=== PATIENT | male | born 2000 | race Native Hawaiian/Other Pacific Islander ===

== ENCOUNTER 2018-08-20 14:20 | Inpatient (IN) | payer SELFPAY ==
[2018-08-20] MEDS ORDERED: Sodium Chloride 0.9% 1,000 ML IV ONE (15:12)
[2018-08-20] MEDS ORDERED: Sodium Chloride 0.9% 1,000 ML ONE (15:38)
[2018-08-20 15:39] LABS: BASO # 0.1 K/uL (0.0-0.2); BASO % 0.5 % (0.0-2.0); EOS # 0.3 K/uL (0.0-0.7); HEMOGLOBIN 17.4 g/dL (12.0-18.0); LYMPH # 2.2 K/uL (1.0-4.3); LYMPH % 23.3 % (20.0-40.0); MEAN CELL VOLUME 88.6 fL (80.0-94.0); MEAN CORPUSCULAR HGB CONC 33.9 g/dL (33.0-37.0); MEAN PLATELET VOLUME 7.8 fL (7.2-11.7); MONO % 10.3 % (0.0-10.0); NEUT # 6.1 K/uL (1.8-7.0); NEUT % 62.9 % (50.0-75.0); RBC 5.78 Mil/uL (4.40-5.90); RED CELL DISTRIBUTION WIDTH 13.3 % (11.5-14.5); WHITE BLOOD COUNT 9.7 K/uL (4.8-10.8)
[2018-08-20 16:00] LABS: BLOOD UREA NITROGEN 12 mg/dL (9-20); CALCIUM 9.3 mg/dl (8.6-10.4); GFR NON-AFRICAN AMERICAN > 60
--- NOTE | 2018-08-20 16:00 | C.PDOC ---
History Of Present Illness Patient reports one day history of palpitations, states "it feels like my heart is pounding out of my chest". Reports some dyspnea as well. Denies chest pain. States that he has a history of SVT, was previously on digoxin, but was taken off of it five years ago. Has never had an ablation or required cardioversion. Patient is visiting from the [facility], arrived 08/05. No leg swelling or pain. Time Seen by Provider: 08/20/18 14:48 Chief Complaint (Nursing): Palpitations PMH Reviewed: Historical Data, Nursing Documentation, Vital Signs - Medical History Other PMH: SVT - Surgical History Surgical History: No Surg Hx - Family History Family History: States: Unknown Family Hx - Social History Lives With A Smoker: No - Immunization History Hx Tetanus Toxoid Vaccination: No Hx Influenza Vaccination: No Hx Pneumococcal Vaccination: No Review Of Systems Except As Marked, All Systems Reviewed And Found Negative. Constitutional: Negative for: Fever, Chills Cardiovascular: Positive for: Palpitations. Negative for: Chest Pain, Light Headedness Respiratory: Positive for: Shortness of Breath. Negative for: Cough, Hemoptysis, SOB with Excertion, Pleuritic Pain Gastrointestinal: Negative for: Nausea, Vomiting, Abdominal Pain, Diarrhea Neurological: Negative for: Altered Mental Status Pedatric Physical Exam - Physical Exam Appears: Well Appearing, Non-toxic, No Acute Distress Skin: Normal Color, Warm, Dry Head: Atraumatic, Normacephalic Eye(s): bilateral: Normal Inspection Oral Mucosa: Moist Cardiovascular: Rhythm Irregular Respiratory: Normal Breath Sounds, No Accessory Muscle Use, No Rales, No Rhonchi, No Wheezing Gastrointestinal/Abdominal: Normal Exam Extremity: No Calf Tenderness, No Deformity, No Swelling Neurological/Psych: Oriented x3, Normal Speech Gait: Steady ED Course And Treatment - Laboratory Results Result Diagrams: 08/21/18 06:06 08/21/18 06:06 ECG: Interpreted By Me ECG Rhythm: Atrial Fibrillation (with RVR) Interpretation Of ECG: normal axis, normal QTc, no ST elevation Rate From EC O2 Sat by Pulse Oximetry: 99 - Other Rad CXR X-Ray: Viewed By Me, Read By Radiologist Interpretation: Date of service: 08/20/2018. HISTORY: palpitations. COMPARISON: No prior. FINDINGS: LUNGS: No active pulmonary disease. PLEURA: No significant pleural effusion identified, no pneumothorax apparent. CARDIOVASCULAR: No aortic atherosclerotic calcification present. Normal cardiac size. No pulmonary vascular congestion. OSSEOUS STRUCTURES: No significant abnormalities. VISUALIZED UPPER ABDOMEN: Normal. OTHER FINDINGS: None. IMPRESSION: No active disease. Medical Decision Making Medical Decision Making: Patient placed on continuous cardiac monitoring. Rapid afib noted, HR 130's. EKG done, afib with RVR noted. BP 110's systolic. Cardizem 10mg ivp given. HR decreased to 90's but went back up to 110's. Cardizem 15mg ivp given. HR decreased to 80's and remained. Still in afib. BP in the 100's-110's systolic throughout. Patient AAOx3 with no dizziness or syncope. Labwork done and results discussed with patient and family. Decision made to admit for further evaluation and management of new onset afib. Case discussed with Dr. Sheikh, hospitalist manager economic, who accepts patient for admission. Patient admitted to tele bed. Disposition - Disposition Disposition Time: 15:00 Condition: GOOD - Clinical Impression Clinical Impression: Atrial fibrillation with RVR
--- NOTE | 2018-08-20 16:14 | RAD ---
Date of service: 08/20/2018 HISTORY: palpitations COMPARISON: No prior. FINDINGS: LUNGS: No active pulmonary disease. PLEURA: No significant pleural effusion identified, no pneumothorax apparent. CARDIOVASCULAR: No aortic atherosclerotic calcification present. Normal cardiac size. No pulmonary vascular congestion. OSSEOUS STRUCTURES: No significant abnormalities. VISUALIZED UPPER ABDOMEN: Normal. OTHER FINDINGS: None. IMPRESSION: No active disease.
[2018-08-20 18:54] LABS: T4 6.4 ug/dL (5.5-11.0)
--- NOTE | 2018-08-20 18:55 | CP.PCM.HP ---
<Mervat CalvoGarrison - Last Filed: 08/20/18 19:27> History of Present Illness - History of Present Illness History of Present Illness: Patient is a 17 year old male with a past medical history of SVT, who presents to the ED with complaints of palpitations and a "pounding chest". He states the palpitations started before lunchtime while he was laying on the couch. He tried to cough to reduce the palpitations, which did not work, and then tried to "sleep it off". Patient states the palpitations and pounding sensation persisted, which is when he came to the hospital. He was previously diagnosed with SVT 7 years ago, took Lanoxin for approximately 1-2 years, and has not taken any medications since (for about 5 years), as his fisher oyster said he did not need to anymore. He has had one episode over the last 5 years approximately 2 years ago. The episode lasted about 5 minutes. He did not follow up with his fisher oyster or PMD in the [facility] over the last 3 years. The patient states he had an echocardiogram when he was diagnosed 7 years ago, but has not had one since. The patient currently complains of palpitations, stating that "they were better earlier (after receiving medication), but they are starting again". He denies chest pain, dyspnea, cough, nausea, vomiting, dizziness, headaches, abdominal pain, diarrhea, constipation, dysuria. PMHx: SVT SurgHx: none FamHx: Mother- DM, Father- HTN; paternal grandfather- colon cancer SocHx: denies tobacco, alcohol, and drug use. Patient is on vacation from the [facility] with his parents, Masood and Hersenia. He admits to drinking soda (possibly with caffeine) and a poor diet while on vacation. Allergies: NKDA Medications: none Present on Admission - Present on Admission Any Indicators Present on Admission: No Review of Systems - Constitutional Constitutional: absent: Chills, Fever, Headache - EENT Ears: absent: Dizziness - Cardiovascular Cardiovascular: Dyspnea on Exertion, Irregular Heart Rhythm, Palpitations, Rapid Heart Rate. absent: Chest Pain, Edema, Leg Edema - Respiratory Respiratory: absent: Cough, Dyspnea - Gastrointestinal Gastrointestinal: absent: Abdominal Pain, Constipation, Diarrhea, Nausea, Vomiting - Genitourinary Genitourinary: absent: Change in Urinary Stream, Dysuria - Neurological Neurological: absent: Dizziness, Headaches - Endocrine Endocrine: Palpitations Past Patient History - Past Social History Smoking Status: Never Smoked - CARDIAC Hx Atrial Fibrillation: Yes - PSYCHIATRIC Hx Substance Use: No Meds Allergies/Adverse Reactions: Allergies Allergy/AdvReac Type Severity Reaction Status Date / Time No Known Allergies Allergy Verified 08/20/18 14:56 Physical Exam - Constitutional Appears: No Acute Distress - Head Exam Head Exam: ATRAUMATIC, NORMAL INSPECTION - Eye Exam Eye Exam: EOMI, Normal appearance - ENT Exam ENT Exam: Mucous Membranes Moist - Neck Exam Neck exam: Negative for: Tenderness, Thyromegaly (possible nodule palpated in the right lobe) - Respiratory Exam Respiratory Exam: Clear to Auscultation Bilateral, NORMAL BREATHING PATTERN. absent: Rales, Rhonchi, Wheezes, Respiratory Distress - Cardiovascular Exam Cardiovascular Exam: Tachycardia, Irregular Rhythm, +S1, +S2 - GI/Abdominal Exam GI & Abdominal Exam: Normal Bowel Sounds, Soft. absent: Distended, Firm, Guarding, Tenderness - Extremities Exam Extremities exam: Positive for: full ROM, normal inspection, pedal pulses present. Negative for: calf tenderness, pedal edema, tenderness - Neurological Exam Neurological exam: Alert, Oriented x3 - Psychiatric Exam Psychiatric exam: Normal Affect, Normal Mood - Skin Skin Exam: Intact, Normal Color, Warm Results - Vital Signs Recent Vital Signs: Last Vital Signs Temp 98 F 08/20/18 16:45 Pulse 93 H 08/20/18 18:22 Resp 22 08/20/18 18:22 BP 112/80 08/20/18 18:22 Pulse Ox 98 08/20/18 18:22 - Labs Result Diagrams: 08/20/18 15:34 08/20/18 15:34 Labs: Laboratory Results - last 24 hr 08/20/18 08/20/18 08/20/18 15:34 15:34 17:28 WBC 9.7 RBC 5.78 Hgb 17.4 Hct 51.2 H MCV 88.6 MCH 30.0 MCHC 33.9 RDW 13.3 Plt Count 314 MPV 7.8 Neut % (Auto) 62.9 Lymph % (Auto) 23.3 [place] % (Auto) 10.3 H Eos % (Auto) 3.0 Baso % (Auto) 0.5 Neut # (Auto) 6.1 Lymph # (Auto) 2.2 [place] # (Auto) 1.0 H Eos # (Auto) 0.3 Baso # (Auto) 0.1 D-Dimer, Quantitative < 200 Sodium 138 Potassium 4.3 Chloride 102 Carbon Dioxide 25 Anion Gap 15 BUN 12 Creatinine 0.6 L Est GFR ( Amer) > 60 Est GFR (Non-Af Amer) > 60 Random Glucose 102 Calcium 9.3 Phosphorus 3.4 Magnesium 2.0 Troponin I < 0.0120 Assessment & Plan - Assessment and Plan (Free Text) Plan: Atrial Fibrillation w/ RVR - EKG (at admission): Afib w/RVR @104bpm - In the ED, was given total 25mg IV cardizem - Pie Chef consulted, help appreciated: Dr. Ng (covering for Dr. Blood) - Per fisher oyster, will start the following: * Amiodarone 150mg IV once * Amiodarone 24-hour drip (1mg/min x6hrs, followed by 0.5mg/min x18hrs) to attempt pharmacologic cardioverision * Lopressor 25mg PO BID * Asa 325mg PO daily - Chest CTA ordered to r/o PE due to sudden onset of afib and recent travel - TSH/Free T4 ordered, follow up - Echo ordered, follow up - Chadsvasc score 0, no anticoagulation needed at this time. *Patient will be transferred to ICU for Amiodarone 24-hour drip. Prophylaxis - DVT: Heparin 5000 units SC Q12h - GI: Pepcid 20mg PO daily - Heart healthy diet, decaf Case discussed with Dr. Kori Macias, PGY2 <Quynh Sheikh - Last Filed: 08/21/18 16:20> Results - Vital Signs Recent Vital Signs: Last Vital Signs Temp 97.8 F 08/21/18 08:00 Pulse 80 08/21/18 09:28 Resp 14 08/21/18 09:28 BP 122/72 08/21/18 09:28 Pulse Ox 98 08/21/18 09:28 - Labs Result Diagrams: 08/21/18 06:06 08/21/18 06:06 Labs: Laboratory Results - last 24 hr 08/20/18 08/20/18 08/21/18 17:28 18:28 06:06 WBC 8.7 RBC 5.33 Hgb 16.2 Hct 48.1 MCV 90.2 MCH 30.5 MCHC 33.8 RDW 13.0 Plt Count 283 MPV 8.4 Neut % (Auto) 58.2 Lymph % (Auto) 27.9 [place] % (Auto) 9.9 Eos % (Auto) 3.6 Baso % (Auto) 0.4 Neut # (Auto) 5.1 Lymph # (Auto) 2.4 [place] # (Auto) 0.9 H Eos # (Auto) 0.3 Baso # (Auto) 0.0 D-Dimer, Quantitative < 200 Sodium Potassium Chloride Carbon Dioxide Anion Gap BUN Creatinine Est GFR ( Amer) Est GFR (Non-Af Amer) Random Glucose Calcium Total Bilirubin AST ALT Alkaline Phosphatase Total Protein Albumin Globulin Albumin/Globulin Ratio Triglycerides Cholesterol LDL Cholesterol Direct HDL Cholesterol Thyroxine (T4) 6.40 TSH 3rd Generation 0.86 08/21/18 06:06 WBC RBC Hgb Hct MCV MCH MCHC RDW Plt Count MPV Neut % (Auto) Lymph % (Auto) [place] % (Auto) Eos % (Auto) Baso % (Auto) Neut # (Auto) Lymph # (Auto) [place] # (Auto) Eos # (Auto) Baso # (Auto) D-Dimer, Quantitative Sodium 136 Potassium 3.8 Chloride 100 Carbon Dioxide 28 Anion Gap 12 BUN 13 Creatinine 0.7 L Est GFR ( Amer) > 60 Est GFR (Non-Af Amer) > 60 Random Glucose 100 Calcium 9.2 Total Bilirubin 0.7 AST 50 ALT 108 H Alkaline Phosphatase 76 Total Protein 7.3 Albumin 4.4 Globulin 3.0 Albumin/Globulin Ratio 1.5 Triglycerides 82 Cholesterol 198 LDL Cholesterol Direct 133 H HDL Cholesterol 51 Thyroxine (T4) TSH 3rd Generation Attending/Attestation - Attestation I have personally seen and examined this patient.: Yes I have fully participated in the care of the patient.: Yes I have reviewed all pertinent clinical information: Yes Notes (Text): seen and examined with the resident This is 17years old boy with history of SVT in the past came with afib with RVR. His HR came down after cardizem at ER. Discussed with the fisher oyster Dr Woods. He recommended to give amiodarone 150mg bolus followed by drip Patient will have CTA to r/o PE Spoke to Dr Santiago . Patient will be going to ICU to monitor him Amiodarone
[2018-08-20] MEDS ORDERED: Amiodarone 360 mg/D5W 200 ml 360 MG/200 ML BAG IV SCH (19:45)
[2018-08-20] MEDS ORDERED: Iodixanol 320 MG/ML 100 ML BOTTLE IV ONE (19:56)
--- NOTE | 2018-08-20 21:38 | CP.PCM.CON ---
History of Present Illness - History of Present Illness History of Present Illness: 17 year old male ,visiting from the [facility] with a past medical history of SVT, who presents to the ED with complaints of palpitations and a "pounding chest" and dyspnea. Palpitations started before lunchtime while at rest. He trie d to cough to reduce the palpitations, which did not work, and then tried to "sleep it off". Symptoms persisted and resulting in Er visit. History of SVT 7 years ago for which he took Lanoxin for approximately 1-2 years and discontinued by the [employer] about 5 years ago. The patient was given Cardizem in the ER and later started on amiodarone as recommended by Cardiology.Denies palpitations ,chest pain or difficulty breathing at present time. Review of Systems - Constitutional Constitutional: absent: Anorexia, Night Sweats, Weakness - EENT Eyes: absent: Blurred Vision, Diplopia Nose/Mouth/Throat: absent: Nasal Congestion, Sore Throat, Neck Pain - Cardiovascular Cardiovascular: absent: Chest Pain, Claudication, Dyspnea - Respiratory Respiratory: absent: Cough, Hemoptysis - Gastrointestinal Gastrointestinal: absent: Abdominal Pain, Nausea, Vomiting - Genitourinary Genitourinary: absent: Dysuria - Musculoskeletal Musculoskeletal: absent: Back Pain, Joint Swelling - Integumentary Integumentary: absent: Bleeding Lesions, Rash - Neurological Neurological: absent: Confusion, Dizziness, Focal Weakness - Endocrine Endocrine: absent: Fatigue - Hematologic/Lymphatic Hematologic: absent: Easy Bleeding Past Patient History - Past Medical History & Family History Past Medical History?: Yes - Past Social History Smoking Status: Not a smok Alcohol: None Home Situation {Lives}: With Family - CARDIAC Hx Atrial Fibrillation: Yes Hx Cardia Arrhythmia: Yes (SVT) - PULMONARY Hx Respiratory Disorders: No - NEUROLOGICAL Hx Neurological Disorder: No - HEENT Hx HEENT Problems: No - RENAL Hx Chronic Kidney Disease: No - ENDOCRINE/METABOLIC Hx Endocrine Disorders: No - HEMATOLOGICAL/ONCOLOGICAL Hx Blood Disorders: No - INTEGUMENTARY Hx Dermatological Problems: No - MUSCULOSKELETAL/RHEUMATOLOGICAL Hx Musculoskeletal Disorders: No Hx Falls: No - GASTROINTESTINAL Hx Gastrointestinal Disorders: No - GENITOURINARY/GYNECOLOGICAL Hx Genitourinary Disorders: No - PSYCHIATRIC Hx Psychophysiologic Disorder: No Hx Substance Use: No - SURGICAL HISTORY Hx Surgeries: No - ANESTHESIA Hx Anesthesia: No Meds Allergies/Adverse Reactions: Allergies Allergy/AdvReac Type Severity Reaction Status Date / Time No Known Allergies Allergy Verified 08/20/18 14:56 - Medications Medications: Current Medications Aspirin (Aspirin) 325 mg PO DAILY [facility] Last Admin: 08/20/18 19:27 Dose: 325 mg Famotidine (Pepcid) 20 mg PO DAILY [facility] Heparin Sodium (Porcine) (Heparin) 5,000 units SC Q12 [facility] Amiodarone HCl/Dextrose (Nexterone 360 Mg In D5w 200 Ml (Premix)) 360 mg in 200 mls @ 33.333 mls/hr IV .Q6H [facility]; Protocol Stop: 08/21/18 01:12 Last Admin: 08/20/18 20:09 Dose: 33.333 mls/hr Amiodarone HCl 540 mg/ (Dextrose) 300 mls @ 0.5 mls/min IV Q18H [facility] Metoprolol Tartrate (Lopressor) 25 mg PO BID [facility] Physical Exam - Constitutional Appears: Non-toxic, No Acute Distress - Head Exam Head Exam: ATRAUMATIC, NORMAL INSPECTION, NORMOCEPHALIC - Eye Exam Eye Exam: EOMI, PERRL - ENT Exam ENT Exam: Mucous Membranes Moist, Normal Exam - Neck Exam Neck exam: Positive for: Normal Inspection. Negative for: Lymphadenopathy - Respiratory Exam Respiratory Exam: Clear to Auscultation Bilateral, NORMAL BREATHING PATTERN. absent: Chest Wall Tenderness, Rhonchi, Wheezes - Cardiovascular Exam Cardiovascular Exam: Irregular Rhythm. absent: JVD - GI/Abdominal Exam GI & Abdominal Exam: Normal Bowel Sounds, Soft. absent: Tenderness - Extremities Exam Extremities exam: Positive for: pedal pulses present. Negative for: calf tenderness, normal inspection, pedal edema - Neurological Exam Neurological exam: Alert, Normal Gait, Oriented x3 - Psychiatric Exam Psychiatric exam: Normal Affect - Skin Skin Exam: Normal Color, Warm Results - Vital Signs Recent Vital Signs: Last Vital Signs Temp 98.1 F 08/20/18 20:30 Pulse 70 08/20/18 20:50 Resp 18 08/20/18 20:50 BP 126/84 08/20/18 20:27 Pulse Ox 98 08/20/18 20:50 - Labs Result Diagrams: 08/20/18 15:34 08/20/18 15:34 Labs: Laboratory Results - last 24 hr 08/20/18 08/20/18 08/20/18 15:34 15:34 17:28 WBC 9.7 RBC 5.78 Hgb 17.4 Hct 51.2 H MCV 88.6 MCH 30.0 MCHC 33.9 RDW 13.3 Plt Count 314 MPV 7.8 Neut % (Auto) 62.9 Lymph % (Auto) 23.3 [place] % (Auto) 10.3 H Eos % (Auto) 3.0 Baso % (Auto) 0.5 Neut # (Auto) 6.1 Lymph # (Auto) 2.2 [place] # (Auto) 1.0 H Eos # (Auto) 0.3 Baso # (Auto) 0.1 D-Dimer, Quantitative < 200 Sodium 138 Potassium 4.3 Chloride 102 Carbon Dioxide 25 Anion Gap 15 BUN 12 Creatinine 0.6 L Est GFR ( Amer) > 60 Est GFR (Non-Af Amer) > 60 Random Glucose 102 Calcium 9.3 Phosphorus 3.4 Magnesium 2.0 Troponin I < 0.0120 Thyroxine (T4) TSH 3rd Generation 08/20/18 18:28 WBC RBC Hgb Hct MCV MCH MCHC RDW Plt Count MPV Neut % (Auto) Lymph % (Auto) [place] % (Auto) Eos % (Auto) Baso % (Auto) Neut # (Auto) Lymph # (Auto) [place] # (Auto) Eos # (Auto) Baso # (Auto) D-Dimer, Quantitative Sodium Potassium Chloride Carbon Dioxide Anion Gap BUN Creatinine Est GFR ( Amer) Est GFR (Non-Af Amer) Random Glucose Calcium Phosphorus Magnesium Troponin I Thyroxine (T4) 6.40 TSH 3rd Generation 0.86 - EKG Data EKG Interpreted by: Myself - Imaging and Cardiology Chest x-ray Status: Image reviewed by me, Report reviewed by me Assessment & Plan - Assessment and Plan (Free Text) Assessment: 1.Atrial Fibrillation with RVR,rate controlled with meds On Amiodarone,lopressor and aspirin as per Cardiology recommendations ECHO Ct angiogram -Unremarkable Pulmonary embolism protocol
[2018-08-21] MEDS ORDERED: Amiodarone 540 MG in Dextrose 5% In Water 289.2 ML IV SCH ×2 (01:13→03:30)
[2018-08-21 06:16] LABS: BASO % 0.4 % (0.0-2.0); EOS # 0.3 K/uL (0.0-0.7); EOS % 3.6 % (0.0-4.0); HEMOGLOBIN 16.2 g/dL (12.0-18.0); LYMPH # 2.4 K/uL (1.0-4.3); LYMPH % 27.9 % (20.0-40.0); MEAN CELL VOLUME 90.2 fL (80.0-94.0); MEAN CORPUSCULAR HEMOGLOBIN 30.5 pg (27.0-31.0); MEAN CORPUSCULAR HGB CONC 33.8 g/dL (33.0-37.0); MEAN PLATELET VOLUME 8.4 fL (7.2-11.7); MONO # 0.9 K/uL (0.0-0.8); MONO % 9.9 % (0.0-10.0); NEUT # 5.1 K/uL (1.8-7.0); NEUT % 58.2 % (50.0-75.0); NRBC % 0.1 % (0.0-2.0); RBC 5.33 Mil/uL (4.40-5.90); WHITE BLOOD COUNT 8.7 K/uL (4.8-10.8)
[2018-08-21 06:45] LABS: ALB/GLOB RATIO 1.5 (1.0-2.1); ALBUMIN 4.4 g/dL (3.5-5.0); ALT/SGPT 108 U/L (21-72); AST/SGOT 50 U/L (17-59); BLOOD UREA NITROGEN 13 mg/dL (9-20); CALCIUM 9.2 mg/dl (8.6-10.4); GFR NON-AFRICAN AMERICAN > 60; HDL CHOLESTEROL 51 mg/dL (30-70)
[2018-08-21 06:56] LABS: LDL CHOLESTEROL 133 mg/dL (0-129)
--- NOTE | 2018-08-21 08:44 | CP.CCUPN ---
<Juliet Hsieh - Last Filed: 08/21/18 09:53> CCU Subjective - Physician Review Subjective (Free Text): 08/21/18 08:44 ICU Progress Note for Jerson Patient seen and examined at bedside this morning alongside his mother. Patient states he is doing well and feeling like his normal self. He states his palpitations have gone away. Amiodarone drip has been d/segundo. Patient and mother are eager to go home. 12 point ROS negative. 08/21/18 09:41 08/21/18 09:53 08/21/18 09:53 CCU Objective - Vital Signs / Intake & Output Vital Signs (Last 4 hours): Vital Signs Pulse Resp BP Pulse Ox 08/21/18 06:28 56 L 14 107/65 98 08/21/18 05:28 53 L 12 106/68 98 Intake and Output (Last 8hrs): Intake & Output 08/20/18 08/21/18 08/21/18 22:59 06:59 14:59 Intake Total 615.6 183.4 Output Total 500 Balance 115.6 183.4 Weight 232 lb 4.8 oz Intake: Intake, IV Amount 115.6 183.4 Left Forearm 115.6 183.4 Oral 500 Output: Urine 500 Urine, Voided 500 - Physical Exam Head: Positive for: Atraumatic, Normocephalic Extroacular Muscles: Positive for: EOMI Conjunctiva: Positive for: Normal Respiratory/Chest: Positive for: Clear to Auscultation, Good Air Exchange. Negative for: Respiratory Distress, Accessory Muscle Use Cardiovascular: Positive for: Regular Rate and Rhythm. Negative for: Murmurs Upper Extremity: Positive for: Normal Inspection, NORMAL PULSES, Capillary Refill < 2s. Negative for: Cyanosis, Edema Lower Extremity: Positive for: Normal Inspection, NORMAL PULSES. Negative for: Edema Neurological: Positive for: Speech Normal Skin: Positive for: Warm, Dry, Normal Color. Negative for: Rashes Psychiatric: Positive for: Alert, Oriented x 3 - Medications Active Medications: Active Medications Generic Name Dose Route Start Last Admin Trade Name Freq PRN Reason Stop Dose Admin Aspirin 325 mg 08/20/18 19:13 08/20/18 19:27 Aspirin PO 325 mg DAILY DESTINEY Administration Famotidine 20 mg 08/21/18 10:00 Pepcid PO DAILY [facility] Heparin Sodium (Porcine) 5,000 units 08/20/18 22:00 08/20/18 22:00 Heparin SC 5,000 units Q12 DESTINEY Administration Metoprolol Tartrate 25 mg 08/21/18 10:00 Lopressor PO BID DESTINEY - Patient Studies Lab Studies: Lab Studies 08/21/18 08/21/18 08/20/18 Range/Units 06:06 06:06 18:28 WBC 8.7 (4.8-10.8) K/uL RBC 5.33 (4.40-5.90) Mil/uL Hgb 16.2 (12.0-18.0) g/dL Hct 48.1 (35.0-51.0) % MCV 90.2 (80.0-94.0) fL MCH 30.5 (27.0-31.0) pg MCHC 33.8 (33.0-37.0) g/dL RDW 13.0 (11.5-14.5) % Plt Count 283 (130-400) K/uL MPV 8.4 (7.2-11.7) fL Neut % (Auto) 58.2 (50.0-75.0) % Lymph % (Auto) 27.9 (20.0-40.0) % [place] % (Auto) 9.9 (0.0-10.0) % Eos % (Auto) 3.6 (0.0-4.0) % Baso % (Auto) 0.4 (0.0-2.0) % Neut # (Auto) 5.1 (1.8-7.0) K/uL Lymph # (Auto) 2.4 (1.0-4.3) K/uL [place] # (Auto) 0.9 H (0.0-0.8) K/uL Eos # (Auto) 0.3 (0.0-0.7) K/uL Baso # (Auto) 0.0 (0.0-0.2) K/uL D-Dimer, Quantitative (0-243) ng/mlDDU Sodium 136 (132-148) mmol/L Potassium 3.8 (3.6-5.2) mmol/L Chloride 100 (98-107) mmol/L Carbon Dioxide 28 (22-30) mmol/L Anion Gap 12 (10-20) BUN 13 (9-20) mg/dL Creatinine 0.7 L (0.8-1.5) mg/dL Est GFR ( Amer) > 60 Est GFR (Non-Af Amer) > 60 Random Glucose 100 (75-110) mg/dL Calcium 9.2 (8.6-10.4) mg/dl Phosphorus (2.5-4.5) mg/dL Magnesium (1.6-2.3) mg/dL Total Bilirubin 0.7 (0.2-1.3) mg/dL AST 50 (17-59) U/L ALT 108 H (21-72) U/L Alkaline Phosphatase 76 (38-126) U/L Troponin I (0.00-0.120) ng/mL Total Protein 7.3 (6.3-8.3) g/dL Albumin 4.4 (3.5-5.0) g/dL Globulin 3.0 (2.2-3.9) gm/dL Albumin/Globulin Ratio 1.5 (1.0-2.1) Triglycerides 82 (0-149) mg/dL Cholesterol 198 (0-199) mg/dL LDL Cholesterol Direct 133 H (0-129) mg/dL HDL Cholesterol 51 (30-70) mg/dL Thyroxine (T4) 6.40 (5.5-11.0) ug/dL TSH 3rd Generation 0.86 (0.46-4.68) mIU/L 08/20/18 08/20/18 08/20/18 Range/Units 17:28 15:34 15:34 WBC 9.7 (4.8-10.8) K/uL RBC 5.78 (4.40-5.90) Mil/uL Hgb 17.4 (12.0-18.0) g/dL Hct 51.2 H (35.0-51.0) % MCV 88.6 (80.0-94.0) fL MCH 30.0 (27.0-31.0) pg MCHC 33.9 (33.0-37.0) g/dL RDW 13.3 (11.5-14.5) % Plt Count 314 (130-400) K/uL MPV 7.8 (7.2-11.7) fL Neut % (Auto) 62.9 (50.0-75.0) % Lymph % (Auto) 23.3 (20.0-40.0) % [place] % (Auto) 10.3 H (0.0-10.0) % Eos % (Auto) 3.0 (0.0-4.0) % Baso % (Auto) 0.5 (0.0-2.0) % Neut # (Auto) 6.1 (1.8-7.0) K/uL Lymph # (Auto) 2.2 (1.0-4.3) K/uL [place] # (Auto) 1.0 H (0.0-0.8) K/uL Eos # (Auto) 0.3 (0.0-0.7) K/uL Baso # (Auto) 0.1 (0.0-0.2) K/uL D-Dimer, Quantitative < 200 (0-243) ng/mlDDU Sodium 138 (132-148) mmol/L Potassium 4.3 (3.6-5.2) mmol/L Chloride 102 (98-107) mmol/L Carbon Dioxide 25 (22-30) mmol/L Anion Gap 15 (10-20) BUN 12 (9-20) mg/dL Creatinine 0.6 L (0.8-1.5) mg/dL Est GFR ( Amer) > 60 Est GFR (Non-Af Amer) > 60 Random Glucose 102 (75-110) mg/dL Calcium 9.3 (8.6-10.4) mg/dl Phosphorus 3.4 (2.5-4.5) mg/dL Magnesium 2.0 (1.6-2.3) mg/dL Total Bilirubin (0.2-1.3) mg/dL AST (17-59) U/L ALT (21-72) U/L Alkaline Phosphatase (38-126) U/L Troponin I < 0.0120 (0.00-0.120) ng/mL Total Protein (6.3-8.3) g/dL Albumin (3.5-5.0) g/dL Globulin (2.2-3.9) gm/dL Albumin/Globulin Ratio (1.0-2.1) Triglycerides (0-149) mg/dL Cholesterol (0-199) mg/dL LDL Cholesterol Direct (0-129) mg/dL HDL Cholesterol (30-70) mg/dL Thyroxine (T4) (5.5-11.0) ug/dL TSH 3rd Generation (0.46-4.68) mIU/L Laboratory Results - last 24 hr 08/20/18 08/20/18 08/20/18 15:34 15:34 17:28 WBC 9.7 RBC 5.78 Hgb 17.4 Hct 51.2 H MCV 88.6 MCH 30.0 MCHC 33.9 RDW 13.3 Plt Count 314 MPV 7.8 Neut % (Auto) 62.9 Lymph % (Auto) 23.3 [place] % (Auto) 10.3 H Eos % (Auto) 3.0 Baso % (Auto) 0.5 Neut # (Auto) 6.1 Lymph # (Auto) 2.2 [place] # (Auto) 1.0 H Eos # (Auto) 0.3 Baso # (Auto) 0.1 D-Dimer, Quantitative < 200 Sodium 138 Potassium 4.3 Chloride 102 Carbon Dioxide 25 Anion Gap 15 BUN 12 Creatinine 0.6 L Est GFR ( Amer) > 60 Est GFR (Non-Af Amer) > 60 Random Glucose 102 Calcium 9.3 Phosphorus 3.4 Magnesium 2.0 Total Bilirubin AST ALT Alkaline Phosphatase Troponin I < 0.0120 Total Protein Albumin Globulin Albumin/Globulin Ratio Triglycerides Cholesterol LDL Cholesterol Direct HDL Cholesterol Thyroxine (T4) TSH 3rd Generation 08/20/18 08/21/18 08/21/18 18:28 06:06 06:06 WBC 8.7 RBC 5.33 Hgb 16.2 Hct 48.1 MCV 90.2 MCH 30.5 MCHC 33.8 RDW 13.0 Plt Count 283 MPV 8.4 Neut % (Auto) 58.2 Lymph % (Auto) 27.9 [place] % (Auto) 9.9 Eos % (Auto) 3.6 Baso % (Auto) 0.4 Neut # (Auto) 5.1 Lymph # (Auto) 2.4 [place] # (Auto) 0.9 H Eos # (Auto) 0.3 Baso # (Auto) 0.0 D-Dimer, Quantitative Sodium 136 Potassium 3.8 Chloride 100 Carbon Dioxide 28 Anion Gap 12 BUN 13 Creatinine 0.7 L Est GFR ( Amer) > 60 Est GFR (Non-Af Amer) > 60 Random Glucose 100 Calcium 9.2 Phosphorus Magnesium Total Bilirubin 0.7 AST 50 ALT 108 H Alkaline Phosphatase 76 Troponin I Total Protein 7.3 Albumin 4.4 Globulin 3.0 Albumin/Globulin Ratio 1.5 Triglycerides 82 Cholesterol 198 LDL Cholesterol Direct 133 H HDL Cholesterol 51 Thyroxine (T4) 6.40 TSH 3rd Generation 0.86 Radiology Impressions: Radiology Impressions Chest X-Ray 08/20/18 15:14 IMPRESSION: No active disease. EKG/Cardiology Studies: Cardiology / EKG Studies 08/20/18 14:31 EKG [ELECTROCARDIOGRAM] Stat Comment: Mode Of Transportation: BED Reason For Exam: cp 08/21/18 07:04 EKG [ELECTROCARDIOGRAM] Stat Comment: Mode Of Transportation: AMBULATORY Reason For Exam: A-FIB Critical Care Progress Note - Nutrition Nutrition: Nutrition Category Date Time Status Heart Healthy Diet [DIET] Diets 08/20/18 Dinner Active Assessment/Plan - Assessment and Plan (Free Text) Assessment: 17 y/o with PMHx of SVT presented to the ED 08/20 with palpitations. Patient stayed in the ICU and is now s/p amiodarone drip and hemodynamically stable. Neuro -AAOx3 -no acute issues CV -Pt w/ PMHx of SVT 7 years ago, was on lanoxin approx 2 years and was d/segundo. Pt w/ Afib w/ RVR in the ED last night 08/20. -s/p amiodarone drip w/ taper. AM EKG with sinus bradycardia 53 bpm. -patient currently on aspirin 325 mg and metoprolol 25 mg BID as recommended by cardiology. Cardiology following: Dr. Ng, covering for Dr. Blood. -pending chest CTA read -pending ECHO read -pending final cardiology recs. Recs last night in admission H&P for Dr. Sheikh (see note). Pulm -CXR neg -no acute issues Renal -electrolytes wnl -no acute issues GI -HHD, avoid caffeine -no acute issues Endo -thyroxine and TSH wnl -no acute issues DVT ppx: heparin 5000 sq q12h GI ppx: pepcid 20 mg PO dispo: Pending ECHO to be completed and final cardiology recs. Patient downgraded to telemetry from ICU. case discussed with Dr. Jerson Hsieh PGY1 <Jonnathan Arthur S - Last Filed: 08/21/18 16:30> CCU Subjective - Physician Review Critical Care Time Spent (in minutes): 30 CCU Objective - Vital Signs / Intake & Output Intake and Output (Last 8hrs): Intake & Output 08/21/18 08/21/18 08/21/18 06:59 14:59 22:59 Intake Total 183.4 33 Balance 183.4 33 Weight 232 lb 4.8 oz Intake: Intake, IV Amount 183.4 33 Left Forearm 183.4 33 - Medications Active Medications: Active Medications Generic Name Dose Route Start Last Admin Trade Name Freq PRN Reason Stop Dose Admin Aspirin 325 mg 08/20/18 19:13 08/21/18 09:23 Aspirin PO 325 mg DAILY DESTINEY Administration Famotidine 20 mg 08/21/18 10:00 08/21/18 09:23 Pepcid PO 20 mg DAILY DESTINEY Administration Heparin Sodium (Porcine) 5,000 units 08/20/18 22:00 08/21/18 09:23 Heparin SC 5,000 units Q12 DESTINEY Administration Metoprolol Tartrate 25 mg 08/21/18 10:00 08/21/18 09:23 Lopressor PO 25 mg BID DESTINEY Administration - Patient Studies Lab Studies: Lab Studies 08/21/18 08/21/18 08/20/18 Range/Units 06:06 06:06 18:28 WBC 8.7 (4.8-10.8) K/uL RBC 5.33 (4.40-5.90) Mil/uL Hgb 16.2 (12.0-18.0) g/dL Hct 48.1 (35.0-51.0) % MCV 90.2 (80.0-94.0) fL MCH 30.5 (27.0-31.0) pg MCHC 33.8 (33.0-37.0) g/dL RDW 13.0 (11.5-14.5) % Plt Count 283 (130-400) K/uL MPV 8.4 (7.2-11.7) fL Neut % (Auto) 58.2 (50.0-75.0) % Lymph % (Auto) 27.9 (20.0-40.0) % [place] % (Auto) 9.9 (0.0-10.0) % Eos % (Auto) 3.6 (0.0-4.0) % Baso % (Auto) 0.4 (0.0-2.0) % Neut # (Auto) 5.1 (1.8-7.0) K/uL Lymph # (Auto) 2.4 (1.0-4.3) K/uL [place] # (Auto) 0.9 H (0.0-0.8) K/uL Eos # (Auto) 0.3 (0.0-0.7) K/uL Baso # (Auto) 0.0 (0.0-0.2) K/uL D-Dimer, Quantitative (0-243) ng/mlDDU Sodium 136 (132-148) mmol/L Potassium 3.8 (3.6-5.2) mmol/L Chloride 100 (98-107) mmol/L Carbon Dioxide 28 (22-30) mmol/L Anion Gap 12 (10-20) BUN 13 (9-20) mg/dL Creatinine 0.7 L (0.8-1.5) mg/dL Est GFR ( Amer) > 60 Est GFR (Non-Af Amer) > 60 Random Glucose 100 (75-110) mg/dL Calcium 9.2 (8.6-10.4) mg/dl Total Bilirubin 0.7 (0.2-1.3) mg/dL AST 50 (17-59) U/L ALT 108 H (21-72) U/L Alkaline Phosphatase 76 (38-126) U/L Total Protein 7.3 (6.3-8.3) g/dL Albumin 4.4 (3.5-5.0) g/dL Globulin 3.0 (2.2-3.9) gm/dL Albumin/Globulin Ratio 1.5 (1.0-2.1) Triglycerides 82 (0-149) mg/dL Cholesterol 198 (0-199) mg/dL LDL Cholesterol Direct 133 H (0-129) mg/dL HDL Cholesterol 51 (30-70) mg/dL Thyroxine (T4) 6.40 (5.5-11.0) ug/dL TSH 3rd Generation 0.86 (0.46-4.68) mIU/L 08/20/18 Range/Units 17:28 WBC (4.8-10.8) K/uL RBC (4.40-5.90) Mil/uL Hgb (12.0-18.0) g/dL Hct (35.0-51.0) % MCV (80.0-94.0) fL MCH (27.0-31.0) pg MCHC (33.0-37.0) g/dL RDW (11.5-14.5) % Plt Count (130-400) K/uL MPV (7.2-11.7) fL Neut % (Auto) (50.0-75.0) % Lymph % (Auto) (20.0-40.0) % [place] % (Auto) (0.0-10.0) % Eos % (Auto) (0.0-4.0) % Baso % (Auto) (0.0-2.0) % Neut # (Auto) (1.8-7.0) K/uL Lymph # (Auto) (1.0-4.3) K/uL [place] # (Auto) (0.0-0.8) K/uL Eos # (Auto) (0.0-0.7) K/uL Baso # (Auto) (0.0-0.2) K/uL D-Dimer, Quantitative < 200 (0-243) ng/mlDDU Sodium (132-148) mmol/L Potassium (3.6-5.2) mmol/L Chloride (98-107) mmol/L Carbon Dioxide (22-30) mmol/L Anion Gap (10-20) BUN (9-20) mg/dL Creatinine (0.8-1.5) mg/dL Est GFR ( Amer) Est GFR (Non-Af Amer) Random Glucose (75-110) mg/dL Calcium (8.6-10.4) mg/dl Total Bilirubin (0.2-1.3) mg/dL AST (17-59) U/L ALT (21-72) U/L Alkaline Phosphatase (38-126) U/L Total Protein (6.3-8.3) g/dL Albumin (3.5-5.0) g/dL Globulin (2.2-3.9) gm/dL Albumin/Globulin Ratio (1.0-2.1) Triglycerides (0-149) mg/dL Cholesterol (0-199) mg/dL LDL Cholesterol Direct (0-129) mg/dL HDL Cholesterol (30-70) mg/dL Thyroxine (T4) (5.5-11.0) ug/dL TSH 3rd Generation (0.46-4.68) mIU/L Laboratory Results - last 24 hr 08/20/18 08/20/18 08/21/18 17:28 18:28 06:06 WBC 8.7 RBC 5.33 Hgb 16.2 Hct 48.1 MCV 90.2 MCH 30.5 MCHC 33.8 RDW 13.0 Plt Count 283 MPV 8.4 Neut % (Auto) 58.2 Lymph % (Auto) 27.9 [place] % (Auto) 9.9 Eos % (Auto) 3.6 Baso % (Auto) 0.4 Neut # (Auto) 5.1 Lymph # (Auto) 2.4 [place] # (Auto) 0.9 H Eos # (Auto) 0.3 Baso # (Auto) 0.0 D-Dimer, Quantitative < 200 Sodium Potassium Chloride Carbon Dioxide Anion Gap BUN Creatinine Est GFR ( Amer) Est GFR (Non-Af Amer) Random Glucose Calcium Total Bilirubin AST ALT Alkaline Phosphatase Total Protein Albumin Globulin Albumin/Globulin Ratio Triglycerides Cholesterol LDL Cholesterol Direct HDL Cholesterol Thyroxine (T4) 6.40 TSH 3rd Generation 0.86 08/21/18 06:06 WBC RBC Hgb Hct MCV MCH MCHC RDW Plt Count MPV Neut % (Auto) Lymph % (Auto) [place] % (Auto) Eos % (Auto) Baso % (Auto) Neut # (Auto) Lymph # (Auto) [place] # (Auto) Eos # (Auto) Baso # (Auto) D-Dimer, Quantitative Sodium 136 Potassium 3.8 Chloride 100 Carbon Dioxide 28 Anion Gap 12 BUN 13 Creatinine 0.7 L Est GFR ( Amer) > 60 Est GFR (Non-Af Amer) > 60 Random Glucose 100 Calcium 9.2 Total Bilirubin 0.7 AST 50 ALT 108 H Alkaline Phosphatase 76 Total Protein 7.3 Albumin 4.4 Globulin 3.0 Albumin/Globulin Ratio 1.5 Triglycerides 82 Cholesterol 198 LDL Cholesterol Direct 133 H HDL Cholesterol 51 Thyroxine (T4) TSH 3rd Generation Radiology Impressions: Radiology Impressions Chest X-Ray 08/20/18 15:14 IMPRESSION: No active disease. Chest CT 08/20/18 19:11 IMPRESSION: No CTA evidence for acute pulmonary embolism. Clear lungs. A preliminary report was provided by [employer] services. EKG/Cardiology Studies: Cardiology / EKG Studies 08/21/18 07:04 EKG [ELECTROCARDIOGRAM] Stat Comment: Mode Of Transportation: AMBULATORY Reason For Exam: A-FIB Critical Care Progress Note - Nutrition Nutrition: Nutrition Category Date Time Status Heart Healthy Diet [DIET] Diets 08/20/18 Dinner Active Attending/Attestation - Attestation I have personally seen and examined this patient.: Yes I have fully participated in the care of the patient.: Yes I have reviewed all pertinent clinical information: Yes Notes (Text): 08/21/18 16:30 Patient seen and examined in the intensive care unit. Patient is off amiodarone drip Seen by cardiology Stable for transfer to floor
--- NOTE | 2018-08-21 10:14 | CT ---
Date of service: 08/20/2018 PROCEDURE: CT Chest with contrast (Pulmonary Angiogram) HISTORY: r/o PE COMPARISON: None available. TECHNIQUE: Axial computed tomography images were obtained of the chest in the pulmonary arterial phase of enhancement. Coronal and sagittal reformatted images were created and reviewed. Intravenous contrast dose: 100 mL Visipaque 320 Radiation dose: Total exam DLP = 568.94 mGy-cm. This CT exam was performed using one or more of the following dose reduction techniques: Automated exposure control, adjustment of the mA and/or kV according to patient size, and/or use of iterative reconstruction technique. FINDINGS: PULMONARY ARTERIES: There are no filling defects in the pulmonary arteries to suggest acute pulmonary embolism. AORTA: No acute findings. No thoracic aortic aneurysm. No aortic atherosclerotic calcification or mural plaque present. LUNGS: The lungs are well inflated and clear. No nodule, mass or pulmonary consolidation. PLEURAL SPACES: No effusion or pneumothorax. HEART: No cardiomegaly. No significant pericardial effusion. LYMPH NODES: No pathologic mediastinal or hilar lymphadenopathy. BONES, CHEST WALL: Within normal limits for the patient's age. No fracture or destructive lesion OTHER FINDINGS: Residual thymic tissue is identified in the anterior mediastinum. IMPRESSION: No CTA evidence for acute pulmonary embolism. Clear lungs. A preliminary report was provided by [employer].
--- NOTE | 2018-08-21 10:50 | CP.PCM.CON ---
History of Present Illness - History of Present Illness History of Present Illness: The pt is a 17 year old man who was diagnosed with svt several years ago in the [facility]. He had palpations even as a child. He was taking digoxin for a few years, but stopped it several years ago. He is here in the visiting [facility] t[facility]. Yesterday, his heart was "beating out of his chest". pt presented to the ER with rapid atrial fibrillation, did not respond to IV cardezem, and IV amiodarone was administered as per Dr Gabe Ng of EP. The patient has converted to nsr. AST is elevated 106 Review of Systems - Review of Systems All systems: reviewed and no additional remarkable complaints except (as above) Past Patient History - Past Medical History & Family History Past Medical History?: Yes - Past Social History Smoking Status: Not a smok Alcohol: None Home Situation {Lives}: With Family - CARDIAC Hx Atrial Fibrillation: Yes Hx Cardia Arrhythmia: Yes (SVT) - PULMONARY Hx Respiratory Disorders: No - NEUROLOGICAL Hx Neurological Disorder: No - HEENT Hx HEENT Problems: No - RENAL Hx Chronic Kidney Disease: No - ENDOCRINE/METABOLIC Hx Endocrine Disorders: No - HEMATOLOGICAL/ONCOLOGICAL Hx Blood Disorders: No - INTEGUMENTARY Hx Dermatological Problems: No - MUSCULOSKELETAL/RHEUMATOLOGICAL Hx Musculoskeletal Disorders: No Hx Falls: No - GASTROINTESTINAL Hx Gastrointestinal Disorders: No - GENITOURINARY/GYNECOLOGICAL Hx Genitourinary Disorders: No - PSYCHIATRIC Hx Psychophysiologic Disorder: No Hx Substance Use: No - SURGICAL HISTORY Hx Surgeries: No - ANESTHESIA Hx Anesthesia: No Meds Allergies/Adverse Reactions: Allergies Allergy/AdvReac Type Severity Reaction Status Date / Time No Known Allergies Allergy Verified 08/20/18 14:56 - Medications Medications: Current Medications Aspirin (Aspirin) 325 mg PO DAILY [facility] Last Admin: 08/21/18 09:23 Dose: 325 mg Famotidine (Pepcid) 20 mg PO DAILY [facility] Last Admin: 08/21/18 09:23 Dose: 20 mg Heparin Sodium (Porcine) (Heparin) 5,000 units SC Q12 [facility] Last Admin: 08/21/18 09:23 Dose: 5,000 units Metoprolol Tartrate (Lopressor) 25 mg PO BID [facility] Last Admin: 08/21/18 09:23 Dose: 25 mg Physical Exam - Constitutional Appears: Well - Head Exam Head Exam: ATRAUMATIC - Eye Exam Eye Exam: EOMI - ENT Exam ENT Exam: Mucous Membranes Moist - Neck Exam Neck exam: Positive for: Full Rom - Respiratory Exam Respiratory Exam: Clear to Auscultation Bilateral - Cardiovascular Exam Cardiovascular Exam: REGULAR RHYTHM - GI/Abdominal Exam GI & Abdominal Exam: Normal Bowel Sounds - Exam External exam: NORMAL EXTERNAL EXAM - Extremities Exam Extremities exam: Positive for: normal inspection - Back Exam Back exam: NORMAL INSPECTION - Neurological Exam Neurological exam: Alert, Altered, CN II-XII Intact, Oriented x3 - Psychiatric Exam Psychiatric exam: Normal Affect, Normal Mood - Skin Skin Exam: Normal Color Results - Vital Signs Recent Vital Signs: Last Vital Signs Temp 97.8 F 08/21/18 08:00 Pulse 80 08/21/18 09:28 Resp 14 08/21/18 09:28 BP 122/72 08/21/18 09:28 Pulse Ox 98 08/21/18 09:28 - Labs Result Diagrams: 08/21/18 06:06 08/21/18 06:06 Labs: Laboratory Results - last 24 hr 08/20/18 08/20/18 08/20/18 15:34 15:34 17:28 WBC 9.7 RBC 5.78 Hgb 17.4 Hct 51.2 H MCV 88.6 MCH 30.0 MCHC 33.9 RDW 13.3 Plt Count 314 MPV 7.8 Neut % (Auto) 62.9 Lymph % (Auto) 23.3 [place] % (Auto) 10.3 H Eos % (Auto) 3.0 Baso % (Auto) 0.5 Neut # (Auto) 6.1 Lymph # (Auto) 2.2 [place] # (Auto) 1.0 H Eos # (Auto) 0.3 Baso # (Auto) 0.1 D-Dimer, Quantitative < 200 Sodium 138 Potassium 4.3 Chloride 102 Carbon Dioxide 25 Anion Gap 15 BUN 12 Creatinine 0.6 L Est GFR ( Amer) > 60 Est GFR (Non-Af Amer) > 60 Random Glucose 102 Calcium 9.3 Phosphorus 3.4 Magnesium 2.0 Total Bilirubin AST ALT Alkaline Phosphatase Troponin I < 0.0120 Total Protein Albumin Globulin Albumin/Globulin Ratio Triglycerides Cholesterol LDL Cholesterol Direct HDL Cholesterol Thyroxine (T4) TSH 3rd Generation 08/20/18 08/21/18 08/21/18 18:28 06:06 06:06 WBC 8.7 RBC 5.33 Hgb 16.2 Hct 48.1 MCV 90.2 MCH 30.5 MCHC 33.8 RDW 13.0 Plt Count 283 MPV 8.4 Neut % (Auto) 58.2 Lymph % (Auto) 27.9 [place] % (Auto) 9.9 Eos % (Auto) 3.6 Baso % (Auto) 0.4 Neut # (Auto) 5.1 Lymph # (Auto) 2.4 [place] # (Auto) 0.9 H Eos # (Auto) 0.3 Baso # (Auto) 0.0 D-Dimer, Quantitative Sodium 136 Potassium 3.8 Chloride 100 Carbon Dioxide 28 Anion Gap 12 BUN 13 Creatinine 0.7 L Est GFR ( Amer) > 60 Est GFR (Non-Af Amer) > 60 Random Glucose 100 Calcium 9.2 Phosphorus Magnesium Total Bilirubin 0.7 AST 50 ALT 108 H Alkaline Phosphatase 76 Troponin I Total Protein 7.3 Albumin 4.4 Globulin 3.0 Albumin/Globulin Ratio 1.5 Triglycerides 82 Cholesterol 198 LDL Cholesterol Direct 133 H HDL Cholesterol 51 Thyroxine (T4) 6.40 TSH 3rd Generation 0.86 - EKG Data EKG Interpreted by: Myself EKG shows normal: Sinus rhythm Rate: Normal (normal) Assessment & Plan - Assessment and Plan (Free Text) Assessment: 1. Atrial fibrillation in a young man with [id number] score of 0. Pt is advised to continue metoprolol. and asa for now. Echo is pending. There is no clinical indication for myocarditis, no drug abuse, coffee or etoh abuse, no FH of afib. Etiology is unclear. Thyroid function is normal. If echo is normal, he can be sent home on beta melony and asa, to be taken with food. Pt is advised to discuss all options with doctors in the [facility], including afib ablation.
[2018-08-21 18:06] VITALS: RESP 17
--- NOTE | 2018-08-21 18:33 | CP.PCM.DIS ---
Provider - Provider Date of Admission: 08/20/18 17:56 Attending physician: Quynh Sheikh MD Consults: 08/20/18 18:04 Cardiology Consult Routine Comment: Consulting Provider: Jose A Blood Consulting Physician: Jose A Blood Reason for Consult: [facility] Hospital Course - Lab Results Lab Results: Most Recent Lab Values WBC 8.7 K/uL (4.8-10.8) 08/21/18 06:06 RBC 5.33 Mil/uL (4.40-5.90) 08/21/18 06:06 Hgb 16.2 g/dL (12.0-18.0) 08/21/18 06:06 Hct 48.1 % (35.0-51.0) 08/21/18 06:06 MCV 90.2 fL (80.0-94.0) 08/21/18 06:06 MCH 30.5 pg (27.0-31.0) 08/21/18 06:06 MCHC 33.8 g/dL (33.0-37.0) 08/21/18 06:06 RDW 13.0 % (11.5-14.5) 08/21/18 06:06 Plt Count 283 K/uL (130-400) 08/21/18 06:06 MPV 8.4 fL (7.2-11.7) 08/21/18 06:06 Neut % (Auto) 58.2 % (50.0-75.0) 08/21/18 06:06 Lymph % (Auto) 27.9 % (20.0-40.0) 08/21/18 06:06 Tyrrell % (Auto) 9.9 % (0.0-10.0) 08/21/18 06:06 Eos % (Auto) 3.6 % (0.0-4.0) 08/21/18 06:06 Baso % (Auto) 0.4 % (0.0-2.0) 08/21/18 06:06 Neut # (Auto) 5.1 K/uL (1.8-7.0) 08/21/18 06:06 Lymph # (Auto) 2.4 K/uL (1.0-4.3) 08/21/18 06:06 Tyrrell # (Auto) 0.9 K/uL (0.0-0.8) H 08/21/18 06:06 Eos # (Auto) 0.3 K/uL (0.0-0.7) 08/21/18 06:06 Baso # (Auto) 0.0 K/uL (0.0-0.2) 08/21/18 06:06 D-Dimer, Quantitative < 200 ng/mlDDU (0-243) 08/20/18 17:28 Sodium 136 mmol/L (132-148) 08/21/18 06:06 Potassium 3.8 mmol/L (3.6-5.2) 08/21/18 06:06 Chloride 100 mmol/L (98-107) 08/21/18 06:06 Carbon Dioxide 28 mmol/L (22-30) 08/21/18 06:06 Anion Gap 12 (10-20) 08/21/18 06:06 BUN 13 mg/dL (9-20) 08/21/18 06:06 Creatinine 0.7 mg/dL (0.8-1.5) L 08/21/18 06:06 Est GFR ( Amer) > 60 08/21/18 06:06 Est GFR (Non-Af Amer) > 60 08/21/18 06:06 Random Glucose 100 mg/dL (75-110) 08/21/18 06:06 Calcium 9.2 mg/dl (8.6-10.4) 08/21/18 06:06 Phosphorus 3.4 mg/dL (2.5-4.5) 08/20/18 15:34 Magnesium 2.0 mg/dL (1.6-2.3) 08/20/18 15:34 Total Bilirubin 0.7 mg/dL (0.2-1.3) 08/21/18 06:06 AST 50 U/L (17-59) 08/21/18 06:06 ALT 108 U/L (21-72) H 08/21/18 06:06 Alkaline Phosphatase 76 U/L (38-126) 08/21/18 06:06 Troponin I < 0.0120 ng/mL (0.00-0.120) 08/20/18 15:34 Total Protein 7.3 g/dL (6.3-8.3) 08/21/18 06:06 Albumin 4.4 g/dL (3.5-5.0) 08/21/18 06:06 Globulin 3.0 gm/dL (2.2-3.9) 08/21/18 06:06 Albumin/Globulin Ratio 1.5 (1.0-2.1) 08/21/18 06:06 Triglycerides 82 mg/dL (0-149) 08/21/18 06:06 Cholesterol 198 mg/dL (0-199) 08/21/18 06:06 LDL Cholesterol Direct 133 mg/dL (0-129) H 08/21/18 06:06 HDL Cholesterol 51 mg/dL (30-70) 08/21/18 06:06 Thyroxine (T4) 6.40 ug/dL (5.5-11.0) 08/20/18 18:28 TSH 3rd Generation 0.86 mIU/L (0.46-4.68) 08/20/18 18:28 Discharge Exam - Head Exam Head Exam: ATRAUMATIC Discharge Plan - Discharge Medications Prescriptions: Aspirin 325 mg PO DAILY 30 Days #30 tab Metoprolol Tartrate [Lopressor] 25 mg PO BID 30 Days #60 tab - Follow Up Plan Condition: GOOD Disposition: HOME/ ROUTINE Instructions: Atrial Fibrillation (DC), Medicines for Atrial Fibrillation
[2018-08-21 18:53] VITALS: TEMP 98.2
[2018-08-21 20:07] VITALS: BP 111/66
[2018-08-21 20:18] VITALS: PULSE 80
[2018-08-22 00:03] VITALS: O2SAT 99
--- NOTE | 2018-08-22 15:18 | CARD ---
APPROVED REPORT Date of service: 08/21/2018 EXAM: Two-dimensional and M-mode echocardiogram with Doppler and color Doppler. Other Information Quality : GoodRhythm : INDICATION Atrial Fibrillation 2D DIMENSIONS IVSd0.7 (0.7-1.1cm)LVDd5.4 (3.9-5.9cm) PWd0.8 (0.7-1.1cm)LA Qtvzvj94 (18-58mL) LVDs3.8 (2.5-4.0cm)FS (%) 30.6 % LVEF (%)57.6 (>50%)LVEF (James's)60.47 % M-Mode DIMENSIONS Left Atrium (MM)3.59 (2.5-4.0cm)IVSd1.00 (0.7-1.1cm) Aortic Root3.09 (2.2-3.7cm)LVDd5.62 (4.0-5.6cm) Aortic Cusp Exc.2.21 (1.5-2.0cm)PWd0.70 (0.7-1.1cm) FS (%) 32 %LVDs3.85 (2.0-3.8cm) LVEF (%)59 (>50%) Mitral Valve MV E Ondzotbv16.4cm/sMV A Tgylzfor17.5cm/sE/A ratio2.1 TDI Lateral E' Peak V16.21cm/sMedial E' Peak V11.51cm/sE/Lateral E'5.8 E/Medial E'8.1 Tricuspid Valve TR Peak Kpcozmey078fp/sTR Peak Gr.[id number] LEFT VENTRICLE The left ventricle is normal size. There is normal left ventricular wall thickness. The left ventricular function is normal. The left ventricular ejection fraction is within the normal range. No regional wall motion abnormalities noted. The left ventricular diastolic function is normal. No left ventricle thrombus noted on this study. There is no ventricular septal defect visualized. There is no left ventricular aneurysm. There is no mass noted in the left ventricle. RIGHT VENTRICLE The right ventricle is normal size. There is normal right ventricular wall thickness. The right ventricular systolic function is normal. ATRIA The left atrium size is normal. The right atrium size is normal. The interatrial septum is intact with no evidence for an atrial septal defect. AORTIC VALVE The aortic valve is normal in structure and function. No aortic regurgitation is present. There is no aortic valvular stenosis. There is no aortic valvular vegetation. MITRAL VALVE The mitral valve is normal in structure and function. There is no evidence of mitral valve prolapse. There is no mitral valve stenosis. There is no mitral valve regurgitation noted. TRICUSPID VALVE The tricuspid valve is normal in structure and function. There is no tricuspid valve regurgitation noted. There is no tricuspid valve prolapse or vegetation. There is no tricuspid valve stenosis. PULMONIC VALVE The pulmonary valve is normal in structure and function. There is no pulmonic valvular regurgitation. There is no pulmonic valvular stenosis. GREAT VESSELS The aortic root is normal in size. The ascending aorta is normal in size. The pulmonary artery is normal. The IVC is normal in size and collapses >50% with inspiration. PERICARDIAL EFFUSION The pericardium appears normal. There is no pleural effusion. <Conclusion> The left ventricular function is normal. The left ventricular ejection fraction is within the normal range. No regional wall motion abnormalities noted.
--- NOTE | 2018-08-23 13:10 | CARD ---
APPROVED REPORT Date of service: 08/20/2018 EKG Measurement Heart [id number] <Conclusion> Atrial fibrillation with rapid ventricular response Abnormal ECG
--- NOTE | 2018-08-24 13:43 | CARD ---
APPROVED REPORT Date of service: 08/21/2018 EKG Measurement Heart [id number] <Conclusion> Sinus bradycardia Otherwise normal ECG
== END 2018-08-21 20:35 | disposition home or self-care (01) | DRG 310 ==
LOC: C.ER 14:20 → C.9E 17:56 → C.9I 19:36
PROVIDERS: ADMIT Internal Medicine; ATTEND Internal Medicine
DX: I48.91 Unspecified atrial fibrillation (principal); Z80.0 Family history of malignant neoplasm of digestive organs; Z82.49 Family history of ischemic heart disease and other diseases of the circulatory system; Z83.3 Family history of diabetes mellitus